=== PATIENT | female | born 1960 | race Caucasian/White ===

== ENCOUNTER 2024-06-01 19:19 | Emergency (ER) | payer SELFPAY ==
[~2024-06-01] VITALS: Ht 172.7 cm; Wt 68.9 kg
[2024-06-01] MEDS ORDERED: KETOROLAC TROMETHAMINE INJ 30 MG/ML VIAL ONE (20:40)
[2024-06-01] MEDS ORDERED: BACLOFEN (10 MG) 10 MG TABLET ONE (20:40)
[2024-06-01] MEDS: BACLOFEN (10 MG) 10 MG TABLET PO ONE (20:45)
[2024-06-01] MEDS: KETOROLAC TROMETHAMINE INJ 30 MG/ML VIAL IM ONE (20:47)
[2024-06-01] MEDS ORDERED: KETO10TA2 PO (21:14)
[2024-06-01] MEDS ORDERED: BACL5TAB PO (21:14)
[2024-06-01 21:23] VITALS: BP 189/99; TEMP 98.1; O2SAT 98
[2024-06-01] MEDS ORDERED: IBUPROFEN 400 MG TABLET PO ONE (21:30)
== END 2024-06-01 21:23 | disposition home or self-care (01) ==
LOC: ER 19:32
DX: S39.012A Strain of muscle, fascia and tendon of lower back, initial encounter (principal); I10 Essential (primary) hypertension; X58.XXXA Exposure to other specified factors, initial encounter; Y93.89 Activity, other specified; Y92.89 Other specified places as the place of occurrence of the external cause; Y99.8 Other external cause status
CPT/HCPCS: 99283; J1885